=== PATIENT | female | born 1985 | race Two or more races ===

== ENCOUNTER 2023-05-23 09:27 | Emergency (ER) | payer MEDICAID, OTHER ==
[~2023-05-23] VITALS: Ht 167.6 cm; Wt 90.6 kg
[2023-05-23 10:23] VITALS: BP 116/75; PULSE 61; RESP 18; TEMP 98.1; O2SAT 96
[2023-05-23] MEDS ORDERED: KETOROLAC TROMETH 30 MG/ML 1ML VIAL IM ONE (11:30)
[2023-05-23] MEDS ORDERED: HYDRX10T PO (11:32)
[2023-05-23] MEDS ORDERED: CYCL-837 PO (11:32)
== END 2023-05-23 12:03 | disposition home or self-care (01) ==
LOC: ER 09:27
DX: F43.20 Adjustment disorder, unspecified (principal); Z79.899 Other long term (current) drug therapy; V98.8XXA Other specified transport accidents, initial encounter; Y93.89 Activity, other specified; Y92.89 Other specified places as the place of occurrence of the external cause; Y99.8 Other external cause status
CPT/HCPCS: 96372; 99283; J1885